=== PATIENT | male | born 1965 | race American Indian/Alaskan Native ===

== ENCOUNTER 2018-03-25 06:49 | Day surgery (SDC) | payer OTHER ==
[2018-03-25 07:16] VITALS: BMI 38.6
--- NOTE | 2018-03-25 08:44 | CP.SDSHP ---
Same Day Surgery H & P - History Proposed Procedure: egd Pre-Op Diagnosis: see notes - Previous Medical/Surgical History Cardiac: Hypertension, Other Pulmonary: Asthma Endocrine/Metabolic: Diabetes, Other Pain: 4.Moderate Pain - Allergies Allergies: Allergies Penicillins Allergy (Intermediate, Verified 03/25/18 07:16) ITCHING - Physical Exam General Appearance: n Vital Signs: Vital Signs 03/25/18 03/25/18 07:14 07:20 Temperature 97.8 F Pulse Rate 80 80 Respiratory 20 Rate Blood Pressure 161/93 H O2 Sat by Pulse 98 Oximetry Neuro: WNL Heart: Other Lungs: Other GI: WNL - {Optional Preform as Required} Breast: WNL Abdomen: Other Rectal: Other Integument: WNL : WNL Ortho: WNL ENT: WNL - Impression Pt. Evaluated Today:Candidate for Anesthesia & Procedure: Yes - Date & Time Time: 08:44 Short Stay Discharge - Short Stay Discharge Admitting Diagnosis/Reason for Visit: DYSPEPSIA Disposition: HOME/ ROUTINE
[2018-03-25] MEDS ORDERED: Lidocaine 4% (Laryng-O-Jet) Kit MM ONE (08:48)
[2018-03-25] MEDS ORDERED: Midazolam 2 MG/2 ML VIAL ONE (08:51)
[2018-03-25] MEDS ORDERED: Propofol 10 mg/ml Inj (20 ML) ONE (08:51)
[2018-03-25] MEDS ORDERED: Belladonna-Phenobarbital PO ONE (09:20)
[2018-03-25 09:48] VITALS: BP 138/79; RESP 16; TEMP 98.8
[2018-03-25 09:51] VITALS: PULSE 76; O2SAT 98
== END 2018-03-25 10:05 | disposition home or self-care (01) ==
LOC: C.ENDO 06:49
PROVIDERS: ATTEND Specialist
DX: K30 Functional dyspepsia (principal)
CPT/HCPCS: 43235; 82948; J2250; J2704; J3010